=== PATIENT | female | born 1990 | race Caucasian/White ===

== ENCOUNTER 2021-06-16 20:01 | Inpatient (IN) | payer BC ==
[2021-06-16] VITALS (14 sets, daily range): BP systolic 103–119; BP diastolic 58–759; PULSE 56–85; TEMP 97.7
[~2021-06-16] VITALS: Ht 160 cm; Wt 56.8 kg
--- NOTE | 2021-06-16 20:15 | NUR ---
2014 G2L1 35.1 WEEK GEST TO LR3 WITH C/O SROM AT 1945. STATES HAS BEEN HAVING GUSHES OF FLUID. AMNIOTRACE DONE AND POSITIVE. SVE 0-1/50/-3 AND LARGE AMOUNT CL FLUID NOTED AFTER VAG EXAM. CONTRACTIONS NOTED ON EFM BUT NOT FELT BY PT. ADM ASSESSMENT DONE. HX OF PREVIOUS C/SECT. 2024 DR FINLEY ON UNIT AND AWARE OF PT AND SROM.
[2021-06-16] MEDS ORDERED: PRENATAL TABLET (20:19)
[2021-06-16] MEDS ORDERED: NIFEREX TABLET1 EACH PO (20:19)
--- NOTE | 2021-06-16 20:35 | NUR ---
2034 DR FINLEY IN ROOM. IV STARTED AND PERMITS SIGNED. [employer] TE[employer] LEADER IN TO VISIT WITH PT. READIED FOR SURGERY.
[2021-06-16 20:59] LABS: BASO % 0.3 % (0.0-2.0); EOS # 0.1 (0.0-0.7); EOS % 0.5 % (0-4.0); GRAN # 7.1 (1.4-6.5); GRAN % 71.2 % (42.2-75.2); HEMOGLOBIN 12.1 g/dl (12.5-16.0); LYMPH # 1.7 (1.2-3.4); LYMPH % 17.4 % (20.0-51.0); MEAN CELL VOLUME 91 fl (80.0-100.0); MEAN CORPUSCULAR HEMOGLOBIN 30 pg (27.0-31.0); MEAN CORPUSCULAR HGB CONC 33 g/dl (33.0-37.0); MEAN PLATELET VOLUME 11.1 fl (7.4-10.4); MONO % 10.2 % (1.7-9.3); PLATELET COUNT 154 K/mm3 (130-400); RED BLOOD COUNT 4.03 M/mm3 (4.10-5.30); REDCELL DISTRIBUTION WIDTH-CV 14.8 % (11.5-14.5)
[2021-06-16 21:00] LABS: HEMATOCRIT 36.6 % (37.0-47.0)
--- NOTE | 2021-06-16 21:05 | NUR ---
2105 AMB TO OR.
--- NOTE | 2021-06-16 23:40 | NUR ---
2340 PERICARE DONE. FUNDAS FIRM. 1/2 PEACH PAD SATURATED AND CHANGED. TYLENOL ES 1000 MG AND OXYCODONE 5 MG PO FOR INC PAIN
[2021-06-17] VITALS (8 sets, daily range): BP systolic 98–110; BP diastolic 60–77; PULSE 62–78; TEMP 97.6–98.5
[2021-06-17] MEDS ORDERED: MOTRIN 800800 MG/TAB PO (04:38)
[2021-06-17] MEDS ORDERED: PERCOCET 325 MG1 TA2 PO (04:39)
--- NOTE | 2021-06-17 13:34 | NUR ---
Initial visit attempt; Nurse with patient, Manager Special Events left card of congratulations for the of patient's son.
[2021-06-18 07:15] VITALS: BP 101/60; PULSE 70; TEMP 98.4
--- NOTE | 2021-06-18 07:15 | NUR ---
Rests in bed, alert. Request pain medication. 0725 Tylenol 1,000 mg, oxycodone 5mg given as ordered and per request.
--- NOTE | 2021-06-18 09:46 | NUR ---
Follow-up; Patient thanked Chief Knowledge Officer for stopping in and inquiring about herself and her son who has been transferred to [place]. Patient said all is going well at this time. Chief Knowledge Officer offered God's blessings to their family.
== END 2021-06-18 10:50 | disposition home or self-care (01) | DRG 787 ==
LOC: LDR 20:01 → LDRO 20:01 → EDBD 20:01 → LDR 20:06 → LDRO 20:08 → LDR 20:32 → OB 22:55
PROVIDERS: ADMIT Obstetrics & Gynecology
PROC: 10D00Z1 Extraction of Products of Conception, Low, Open Approach (ICD-10-PCS; principal; 2021-06-16)
DX: O60.14X0 Preterm labor third trimester with preterm delivery third trimester, not applicable or unspecified (principal); O98.52 Other viral diseases complicating childbirth; O34.211 Maternal care for low transverse scar from previous cesarean delivery; Z3A.35 35 weeks gestation of pregnancy; Z37.0 Single live birth; L30.5 Pityriasis alba; O75.89 Other specified complications of labor and delivery; O99.02 Anemia complicating childbirth; D64.9 Anemia, unspecified; B00.9 Herpesviral infection, unspecified
CPT/HCPCS: J0690; J2370; J2405; J2590; J7120